=== PATIENT | female | born 1930 | race Caucasian/White ===

== ENCOUNTER → 2016-12-13 | Outpatient (CLI) | payer MEDICARE, OTHER ==
[~2016-12-13] MED LIST: ASPIRIN PO; ASPIRIN81 M2 PO; ATENOLOL PO; COLACE PO; SYNTHROID PO
--- NOTE | ~2016-12-13 | EKG ---
PATIENT: LEATHA HERNÁNDEZ UNIT #: [id number] Ventricular Rate: 58 BPM Atrial Rate: 58 BPM P-R Interval: 180 ms QRS Duration: 88 ms Q-T Interval: 420 ms QTC Calculation(Bezet): 412 ms P [place]: 70 degrees Calculated R [place]: 9 degrees Calculated T [place]: 47 degrees Diagnosis Line: Sinus bradycardia Diagnosis Line: Otherwise normal ECG Diagnosis Line: No previous ECGs available Diagnosis Line: Confirmed by BARRINGTON FRAGA MD ([id number]) on 12/14/2016 Diagnosis Line: 10:36:38 AM INTERPRETING MD: FLAKITO IBRAHIM
[2016-12-13 13:55] LABS: CALCIUM SERUM 9.2 mg/dL (8.4-10.2); GLOM FILT RATE Estimated 50.3 mL/min (>60); POTASSIUM 4.6 mmol/L (3.5-5.1)
== END | disposition home or self-care (01) ==
LOC: CAMB 11:49
PROVIDERS: Surgery
DX: Z01.818 Encounter for other preprocedural examination (principal)
CPT/HCPCS: 36415; 80048; 93005

== ENCOUNTER → 2016-12-19 | Day surgery (SDC) | payer MEDICARE, OTHER ==
--- NOTE | ~2016-12-19 | OR ---
Unit #: [id number] #: [id number] Patient: LEATHA HERNÁNDEZ [id number] [address] [place], [place] [address] [id number] MR#: [id number] NAME: LEATHA HERNÁNDEZ ROOM: Date of Procedure: 12/19/2016 Admission Date: 12/19/2016 Surgeon: Vasiliy Morejon Jr., M.D. : [id number] Attending Physician: Vasiliy Morejon Jr., M.D. OPERATIVE REPORT INDICATIONS FOR PROCEDURE The patient is an 86-year-old white female, who was recently brought to the office along with her family complaining of a large mass of the left posterior neck. 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 She is brought in this time for excision of this. It has been bleeding and draining at times. PREOPERATIVE DIAGNOSIS Large skin lesion of the left posterior neck compatible with squamous cell cancer. 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 ANESTHESIA MAC anesthesia with 0.5% Marcaine with epinephrine locally. PROCEDURE PERFORMED Wide excision of large mass of left posterior neck. DESCRIPTION OF PROCEDURE The patient was positioned in right lateral decubitus position. After being prepped and draped in routine fashion, the patient was given MAC anesthesia and then locally anesthetized with 0.5% Marcaine with epinephrine. An elliptical incision was made around the lesion being totally excised from this surrounding tissue with a #10 blade scalpel and down to the fascia of the muscle. After it was completely removed from the fascia of the muscle, it was sent to pathology. The closest margins were approximately 1 cm. After the wound was copiously irrigated with saline solution, hemostasis was achieved with Bovie cautery. Several small bleeders were controlled with [id number] 3-0 Vicryl sutures. After again irrigating the wounds and checking for hemostasis which was complete, the deeper subcutaneous tissue was approximated with interrupted 3-0 Vicryl sutures. The central portion of the wound was approximated with interrupted 2-0 nylon mattress stitches and the skin edges were approximated with stainless-steel skin clips and skin stapling device. Sterile dressings were applied externally along with ointment. Estimated blood loss less than 50 mL. The patient received less than 1000 mL crystalloid solution during the procedure. Sponges and instrument counts were correct x3. No drains used. No complications. The patient was Unit #: [id number] #: [id number] Patient: LEATHA HERNÁNDEZ taken to the recovery room with stable vital signs in satisfactory condition. Dictated by... Vasiliy Morejon Jr., MKacey. RACHEL/emily TD: 12/19/2016 23:57 JOB #: [id number] OPERATIVE REPORT Page 1 of 1 X Vasiliy Morejon MD X PROCEDURE OPERATIVE NOTE
== END | disposition home or self-care (01) ==
LOC: CSUR 08:20
DX: L72.0 Epidermal cyst (principal); L98.499 Non-pressure chronic ulcer of skin of other sites with unspecified severity; L02.11 Cutaneous abscess of neck; L73.9 Follicular disorder, unspecified; L57.8 Other skin changes due to chronic exposure to nonionizing radiation; I10 Essential (primary) hypertension; I48.91 Unspecified atrial fibrillation; E03.9 Hypothyroidism, unspecified; M19.90 Unspecified osteoarthritis, unspecified site; G89.29 Other chronic pain; Z87.440 Personal history of urinary (tract) infections; Z80.3 Family history of malignant neoplasm of breast; Z80.9 Family history of malignant neoplasm, unspecified; Z88.2 Allergy status to sulfonamides; Z88.8 Allergy status to other drugs, medicaments and biological substances; Z90.710 Acquired absence of both cervix and uterus; Z79.82 Long term (current) use of aspirin; Z79.899 Other long term (current) drug therapy; Z90.49 Acquired absence of other specified parts of digestive tract; Z98.42 Cataract extraction status, left eye; Z98.41 Cataract extraction status, right eye; Z98.890 Other specified postprocedural states
CPT/HCPCS: 88304; J3010; J3370